=== PATIENT | female | born 1965 | race Caucasian/White ===

== ENCOUNTER 2017-12-22 18:37 | Emergency (ER) | payer MEDICAID | END 2017-12-22 19:38 | disposition left against medical advice (07) | LOC: M ED 18:37 | DX: Z53.21 Procedure and treatment not carried out due to patient leaving prior to being seen by health care provider (principal) ==

== ENCOUNTER → 2018-10-06 | Outpatient (REF) | payer OTHER ==
[~2018-10-06] MED LIST: CITA20TA4 PO; HYDR-3363 PO; METH1TAB40 PO
[2018-10-06 17:37] LABS: C REACTIVE PROTEIN QUANTITATIV < 0.30 MG/DL (0.00-0.30); RHEUMATOID FACTOR QUANT < 10.0 IU/ML (<15.0)
[2018-10-15 14:13] LABS: ANTINUCLEAR ANTIBODIES DIRECT Negative (Negative); HLA-B27 Negative (.); Lyme Disease IgG/IgM Antibodie <0.91 ISR (0.00-0.90); Lyme Disease IgM Ab Quantitati <0.80 index (0.00-0.79)
[2018-10-18 08:52] LABS: DRVV SCREEN 40.5 SEC
== END ==
LOC: M LABDRAW1 16:58
PROVIDERS: ATTEND Physician Assistant
DX: M16.11 Unilateral primary osteoarthritis, right hip (principal)

== ENCOUNTER → 2019-07-26 | Outpatient (CLI) | payer OTHER ==
[~2019-07-26] MED LIST changes: -CITA20TA4 PO; +CITA20TA6 PO
--- NOTE | 2019-07-26 12:39 | REP ---
MRI LUMBAR SPINE WITHOUT CONTRAST: HISTORY: Spondylosis, weakness of the lower extremities. The patient reports an injury several months ago in a fall. Low back pain. No comparison lumbar imaging. TECHNIQUE: Sagittal and axial T1- and T2-weighted scans are acquired in the usual fashion with and without fat saturation. Sequences include spin echo, turbo spin-echo, and STIR imaging sequences. MRI FINDINGS: There is some straightening of the upper lumbar spine. Lumbar vertebral body heights. No fracture is seen. There are reactive marrow changes associated with degenerative disc disease at L5-S1. There are also reactive bone marrow changes on either side of the degenerated L2-3 disc. There is degenerative disc disease at each lumbar level. The tip of the conus medullaris is normal in position and appearance at T12-L1. There is a levoconvex curve in the upper lumbar spine. Axial and sagittal images at T12-L1 demonstrate minimal central disc bulging. At L1-L2, there is a broad-based central disc protrusion which extends cranially along the posterior cortex of the L1 vertebral body. This compresses the central thecal sac to some degree. Canal size is borderline. AP dimension of the thecal sac in the midline at L1-2 is 8 mm. No neural foraminal narrowing is appreciated. No annie cauda equina compression. L2-3, there is posterior osteophytic ridging indenting the ventral margin of the thecal sac. No foraminal narrowing is appreciated. There is a mild retrolisthesis at L2-3 due to degenerative disc disease. This measures 6 mm. At the L3-L4, there is mild diffuse disc bulging. Mild ligamentum flavum and facet hypertrophy is present. No neural foraminal encroachment is seen. At L4-L5, there is facet and ligamentum flavum hypertrophy and diffuse disc bulging. There is mild left-sided foraminal encroachment due to facet hypertrophy and disc bulging. At L5-S1, there is diffuse disc bulging. There is a left foraminal disc bulge, which in combination with facet hypertrophy produces left-sided foraminal narrowing. There is no right foraminal narrowing. No central canal stenosis is seen. IMPRESSION: Scoliosis, advanced diffuse degenerative disc disease. There is a central focal disc protrusion at L1-2 extending cranially with thecal sac compression. There is retrolisthesis at L2-3 due to degenerative disc disease. There is diffuse disc bulging at L2-3. Mild left foraminal encroachment is seen in L4-5 and right foraminal encroachment is seen at L5-S1. Electronically Signed by Vikas Meza MD 07/26/2019 03:05 P
== END ==
LOC: M RAD 07:06
PROVIDERS: ATTEND Nurse Practitioner Family
DX: M43.16 Spondylolisthesis, lumbar region (principal); M43.06 Spondylolysis, lumbar region; M54.16 Radiculopathy, lumbar region

== ENCOUNTER → 2020-09-01 | Outpatient (CLI) | payer OTHER ==
--- NOTE | 2020-09-01 15:47 | REP ---
INDICATION: LBP. COMPARISON: MRI 07/26/2019 TECHNIQUE: Sagittal T1, T2 and STIR images with axial T1 and T2 sequences. FINDINGS: Reversal lordosis in the upper lumbar spine is again noted. Few mm of retrolisthesis of L2 on 3 appears unchanged. Severe discogenic endplate changes and disc space narrowing at L2-3 less severe disc space narrowing and discogenic endplate changes at L5-S1 loss of disc height and loss of 6 water signal at L1-2 less at L4-5 relatively spared at L3-4. No acute compression fractures. Anterior osteophytes present at multiple levels. Conus terminates at T12-L1. Levoconvex curvature of the upper lumbar spine is again noted. Sagittal images show disc bulges at T11-12 and T12-L1 not causing spinal stenosis or abutting the cord. Due to levorotatory scoliosis the nerve roots are displaced to the right side of the neural canal. There is posterior osteophytic ridging and broad-based disc bulge at L1-2 flattening the ventral thecal sac and contributing to the crowding of nerve roots in the right side of the canal is nerve roots of probe into the lateral recess. There is some extrusion and protrusion of disc centrally and posteriorly superiorly along the posterior aspect of L1 all of this unchanged. The foramina appear adequate on left and marginally adequate with perineural fat on some facet arthropathy. At L2-3 there is posterior osteophytic ridging, broad-based disc bulge in this flattens ventral thecal sac there is some crowding of nerve roots to the right side of thecal sac and towards the lateral recess due to the levorotatory scoliosis foramina marginally adequate on the right and left side without compression of the L2 nerve roots. At L3-4 broad-based disc bulge abutting the L4 nerve roots in the central canal and some ligamentum flavum hypertrophy and facet arthropathy also present some crowding of the nerve roots in the posterior aspect of the canal but cross-sectional area the canal is adequate. There is foraminal encroachment with loss of perineural fat the right but no compression of the L3 nerve root. Slightly more perineural fat on the left without compression of the L3 nerve. At L4-5 ligamentum facet hypertrophy and broad-based diffuse disc bulge. There is left greater than right foraminal encroachment due to these combined factors with some nerve root compression of the L4 root only on the left. Cross-sectional area the canal is adequate At L5-S1 there is broad-based disc bulge with left foraminal disc bulge and protrusion this abuts and displaces the left S1 nerve root in the canal flattening the ventral thecal sac. Contributes to foraminal encroachment and compression of the L5 nerve root on the left. The right nerve root has diminished perineural fat but no nerve root compression ligamentum facet hypertrophy noted. IMPRESSION: 1. Broad-based disc bulge with left intraforaminal disc bulge and protrusion at L5-S1 combined with ligamentum and facet hypertrophy this is a displacing the left S1 nerve root in the canal and causing foraminal encroachment nerve root compression of L5 on the left the right S1 nerve root and L5 nerve root are not compressed. This is stable. 2. Broad-based disc bulge with combined ligamentum and facet hypertrophy flattening ventral thecal sac with foraminal encroachment left greater than right and mild compression of the L4 nerve root only on the left. Cross-sectional area the canal adequate. 3. The L3-4 disc level shows broad-based disc bulge without central canal stenosis. Foramina show loss of perineural fat without L3 nerve root compression. No central canal stenosis. 4. The L2-3 level shows posterior osteophytic ridging, some retrolisthesis because of facet hypertrophy and broad-based disc bulge. Levorotatory scoliosis contributes to nerve root being displaced to the right side of the neural canal. Foramina show some loss of perineural fat but no L2 nerve root compression. 5. Posterior osteophytic ridging with broad based disc bulge at L1-2 and is scoliosis contributes to crowding of the nerve roots along the right side of the canal. Some extrusion and protrusion of disc centrally extending superiorly along the posterior aspect of L1 unchanged. Foramina are adequate on the left and marginally adequate on the right with perineural fat but no L1 nerve root compression. Centrally stable exam. 1. <Electronically signed by Davonte Pena > 09/01/20 [id number]
== END ==
LOC: M RAD 13:37
PROVIDERS: ATTEND Nurse Practitioner Family
DX: M51.26 Other intervertebral disc displacement, lumbar region (principal); R32 Unspecified urinary incontinence; M48.061 Spinal stenosis, lumbar region without neurogenic claudication

== ENCOUNTER → 2020-09-29 | Outpatient (CLI) | payer OTHER ==
--- NOTE | 2020-10-02 17:27 | SLEEPHOME ---
DIAGNOSTIC HOME SLEEP TESTING DATE: 09/29/2020 ORDERED BY: KIMBERLY Werner Diagnostic home sleep testing was performed due to concern for the obstructive sleep apnea syndrome in this patient with hypersomnia. For testing, a nocturnal T3 respiratory monitoring device was used. Continuous record was made of pulse, oxygen saturation, air flow, chest and abdominal strain, and body position. 9 hours and 59 minutes of data were reviewed. There were 6 hours and 19 minutes marked as time in bed. During the interval marked time in bed, there were 52 respiratory events identified of 10 seconds in duration or greater for a respiratory event index of 8.2. The events were primarily obstructive, but 19 mixed and central apneas were seen. Baseline pulse rate 68. Pulse rate range 49 to 96. Baseline saturation was 90%. Saturations fell to 84%. Testing was performed in the both supine and non-supine positions. IMPRESSION: Abnormal home sleep testing with repetitive respiratory events and oxygen desaturations to 84% with a respiratory event index of 8.2 is consistent with the obstructive sleep apnea syndrome. RECOMMENDATION: The patient should be encouraged to undergo formal sleep evaluation.
== END ==
LOC: M SLEEP HO 09-28 11:57
PROVIDERS: ATTEND Nurse Practitioner Family
DX: G47.10 Hypersomnia, unspecified (principal)

== ENCOUNTER → 2020-10-24 | Outpatient (CLI) | payer OTHER ==
[~2020-10-24] MED LIST changes: +PROHANCE 279.3MG/ML 15ML VIAL As Ordered ONE
--- NOTE | 2020-10-24 10:55 | REP ---
INDICATION: UNILATERAL WEAKNESS. COMPARISON: None. TECHNIQUE: Axial and sagittal imaging planes are utilized for T1 and T2-weighted scans. Sequences include spin-echo, fast spin echo, FLAIR, and diffusion weighted sequences. Gadolinium enhancement dose is 15 mL of intravenous ProHance. Postcontrast T1 weighted axial, coronal and sagittal imaging is performed. FINDINGS: No bony calvarial lesion is seen. Craniocervical junction and upper cervical cord are normal in appearance. There is no MR evidence of significant paranasal sinus disease. No intraorbital abnormality is seen. The lateral, third, and fourth ventricles are normal in size and position. Fernández-white differentiation pattern is intact above and below the tentorium. There is no evidence of intracranial hemorrhage. No mass, infarction, extra-axial fluid collection or midline shift is seen. No abnormal white matter lesion is seen. Post-contrast images demonstrate enhancement in normal vasculature. No abnormal intracranial contrast enhancement is appreciated. IMPRESSION: Negative brain MRI study. <Electronically signed by Roni Meza > 10/24/20 [id number]
== END ==
LOC: M RAD 08:56
PROVIDERS: ATTEND Nurse Practitioner Family
DX: R53.1 Weakness (principal)
CPT/HCPCS: 70553; A9576

== ENCOUNTER → 2020-11-08 | Outpatient (CLI) | payer OTHER ==
[~2020-11-08] MED LIST changes: +METH-1164 PO; -METH1TAB40 PO; -PROHANCE 279.3MG/ML 15ML VIAL As Ordered ONE
--- NOTE | 2020-11-09 09:47 | REP ---
INDICATION: DDD COMPARISON: None. TECHNIQUE: AP, lateral, coned-down views of the lumbar spine. FINDINGS: There is moderate chronic levoconvex scoliosis along with advanced multilevel degenerative disc osteophyte complexes primarily along the right-side of the lumbar spine at L1-2 and L3-4 including endplate sclerosis, disc space narrowing, and bridging osteophytosis. There is also moderate to advanced degenerative changes at the L4-5 and L5-S1 levels including osteophytosis, endplate sclerosis and hypertrophic facet changes. There is no evidence for acute fracture/compression injury or subluxation. However, lateral view demonstrates chronic compression deformity at L2. IMPRESSION: 1. Moderate to advanced multilevel degenerative changes as noted above. Finding should be correlated with recent MRI dated 09/01/2020. <Electronically signed by Feliciano Aguilera > 11/09/20 [id number]
== END ==
LOC: M RAD 12:08
PROVIDERS: ATTEND Internal Medicine
DX: M51.36 Other intervertebral disc degeneration, lumbar region (principal); M25.78 Osteophyte, vertebrae; M51.37 Other intervertebral disc degeneration, lumbosacral region

== ENCOUNTER → 2022-01-16 | Outpatient (CLI) | payer OTHER ==
[~2022-01-16] MED LIST changes: +ISOVUE-300 61% 50ML VIAL As Ordered ONE; +LIDOCAINE 1% MDV 20ML VIAL As Ordered ONE; +TRIAMCINOLONE ACETONIDE SUSP 40 MG/ML VIAL (J3301) As Ordered ONE
== END ==
LOC: M RADPRO 13:27
PROVIDERS: ATTEND Orthopaedic Surgery
DX: M16.0 Bilateral primary osteoarthritis of hip (principal)
CPT/HCPCS: 20610; 77002; J3301; Q9967

== ENCOUNTER 2023-07-07 15:19 | Emergency (ER) | payer OTHER ==
[~2023-07-07] VITALS: Ht 162.6 cm; Wt 66.4 kg
[~2023-07-07 15:19] MED LIST changes: -ISOVUE-300 61% 50ML VIAL As Ordered ONE; -LIDOCAINE 1% MDV 20ML VIAL As Ordered ONE; -TRIAMCINOLONE ACETONIDE SUSP 40 MG/ML VIAL (J3301) As Ordered ONE
[2023-07-07] MEDS ORDERED: GABA-284 (15:55)
[2023-07-07] MEDS ORDERED: OXYB5TAB10 (15:55)
[2023-07-07] MEDS ORDERED: MELO15TA28 (15:55)
[2023-07-07] MEDS ORDERED: ARIP1TAB4 (15:55)
[2023-07-07] MEDS ORDERED: LEVOTAB10 (15:55)
[2023-07-07] MEDS ORDERED: TIZA10TA (15:55)
[2023-07-07 19:19] VITALS: BP 145/95; TEMP 98.6; O2SAT 96
== END 2023-07-07 19:29 | disposition home or self-care (01) ==
LOC: M ED 15:19
DX: S52.321A Displaced transverse fracture of shaft of right radius, initial encounter for closed fracture (principal); S52.612A Displaced fracture of left ulna styloid process, initial encounter for closed fracture; W10.8XXA Fall (on) (from) other stairs and steps, initial encounter; F17.200 Nicotine dependence, unspecified, uncomplicated; F19.10 Other psychoactive substance abuse, uncomplicated; F10.10 Alcohol abuse, uncomplicated; Z88.0 Allergy status to penicillin; Z88.8 Allergy status to other drugs, medicaments and biological substances; Z79.891 Long term (current) use of opiate analgesic; Z79.899 Other long term (current) drug therapy; Y92.9 Unspecified place or not applicable

== ENCOUNTER 2023-08-03 15:34 | Emergency (ER) | payer OTHER ==
[~2023-08-03] VITALS: Ht 160 cm; Wt 59.8 kg
[~2023-08-03 15:34] MED LIST changes: +ARIP1TAB4 PO; +GABA-284 PO; +LEVOTAB10 PO; +MELO15TA28 PO; +OXYB5TAB11 PO; +TIZA10TA PO
[2023-08-03 15:35] VITALS: BP 116/73; TEMP 96.9; O2SAT 97
[2023-08-03] MEDS ORDERED: SYMB16INH INH (15:44)
[2023-08-03] MEDS ORDERED: ALBU2.5V10 INH (15:44)
== END 2023-08-03 17:59 | disposition home or self-care (01) ==
LOC: M ED 15:34
DX: S52.611A Displaced fracture of right ulna styloid process, initial encounter for closed fracture (principal); S52.351A Displaced comminuted fracture of shaft of radius, right arm, initial encounter for closed fracture; W19.XXXA Unspecified fall, initial encounter; J44.9 Chronic obstructive pulmonary disease, unspecified; F17.200 Nicotine dependence, unspecified, uncomplicated; F19.10 Other psychoactive substance abuse, uncomplicated; Z79.52 Long term (current) use of systemic steroids; Z79.891 Long term (current) use of opiate analgesic; Z79.899 Other long term (current) drug therapy; Y92.009 Unspecified place in unspecified non-institutional (private) residence as the place of occurrence of the external cause; Y93.9 Activity, unspecified; Y99.9 Unspecified external cause status; Z88.0 Allergy status to penicillin; Z88.8 Allergy status to other drugs, medicaments and biological substances